=== PATIENT | male | born 1965 | race Caucasian/White ===

== ENCOUNTER 2022-02-28 07:13 | Day surgery (SDC) | payer MEDICAID ==
[~2022-02-28] VITALS: Ht 162.6 cm; Wt 67.1 kg
[2022-02-28] MEDS ORDERED: SIMETHICONE 40 MG/0.6 ML ML ONE (07:28)
[2022-02-28] MEDS: fentaNYL CITRATE/PF 100 MCG/2 ML AMP ONE ×2 (08:16→08:19)
[2022-02-28] MEDS: MIDAZOLAM HCL 5 MG/5 ML VIAL ONE ×3 (08:16→08:23)
[2022-02-28 11:47] VITALS: BP_SYST 113
== END 2022-02-28 09:30 | disposition home or self-care (01) ==
LOC: SDS 07:13 → SMU 07:16 → SDS 09:30
PROVIDERS: ATTEND Internal Medicine
DX: Z12.11 Encounter for screening for malignant neoplasm of colon (principal); I10 Essential (primary) hypertension; E78.5 Hyperlipidemia, unspecified; E11.9 Type 2 diabetes mellitus without complications; Z79.899 Other long term (current) drug therapy; Z20.822 Contact with and (suspected) exposure to COVID-19
CPT/HCPCS: 36415; 45378; 82962; 87426; 99152; G0378; J2250; J3010